=== PATIENT | male | born 1970 | race Caucasian/White ===

== ENCOUNTER 2021-08-15 08:06 | Outpatient (CLI) | payer BC ==
[2021-08-15 17:35] LABS: SARS-CoV-2 PCR by NAA Not Detected (NotDetected)
== END 2021-08-15 08:07 | disposition home or self-care (01) ==
LOC: CSHLAB 08:06
PROVIDERS: ATTEND Surgery
DX: Z01.812 Encounter for preprocedural laboratory examination (principal); Z20.822 Contact with and (suspected) exposure to COVID-19; R31.29 Other microscopic hematuria
CPT/HCPCS: U0003; U0005

== ENCOUNTER 2021-08-18 06:04 | Day surgery (SDC) | payer BC ==
[2021-08-17 13:59] VITALS: BMI 34.5
[2021-08-18] MEDS ORDERED: PROPOFOL 40 ML ONE (07:12)
[2021-08-18] MEDS ORDERED: Lidocaine 2% PF 5 ML VIAL ONE (07:12)
== END 2021-08-18 08:35 ==
LOC: CSHSDC 06:04
PROVIDERS: ATTEND Surgery
PROC: 0DJD8ZZ Inspection of Lower Intestinal Tract, Via Natural or Artificial Opening Endoscopic (ICD-10-PCS; principal; 2021-08-18)
DX: Z12.11 Encounter for screening for malignant neoplasm of colon (principal); K57.30 Diverticulosis of large intestine without perforation or abscess without bleeding
CPT/HCPCS: J2001; J2704